=== PATIENT | female | born 1960 | race Caucasian/White ===

== ENCOUNTER 2023-10-27 09:39 | Outpatient (OUT) | payer MEDICARE, SELFPAY ==
--- NOTE | 2023-10-27 | XR_ITS ---
The [address] [address] Patient Name: KIZZY MENDES MRN: [id number] date: 1960 Sex: F Assigned Patient Location: RAD Current Patient Location: [facility] Accession/Order Number: [id number] Exam Date: 10/27/2023 10:00 Report Date: 10/27/2023 13:28 At the request of: TIM MARTINES Procedure: XR finger RT min 2V PROCEDURE: XR hand RT 2V, XR finger RT min 2V COMPARISON: None. HISTORY: Finger joint swelling FINDINGS: BONES:No acute fracture or dislocation. Joint space narrowing and marginal osteophyte formation first carpometacarpal and metacarpal phalangeal joint, second and third proximal and distal interphalangeal joints. Marginal osteophyte formation. SOFT TISSUES:Soft tissue swelling third proximal interphalangeal joint EFFUSION:None visible. OTHER: Negative. XR/XR finger RT min 2V IMPRESSION: Osteoarthritis Swelling over third proximal interphalangeal joint of unknown etiology. Consider inflammatory arthritis Electronically authenticated by: PRASHANT GARCIA Date: 10/27/2023 13:28
--- NOTE | 2023-10-27 | XR_ITS ---
The [address] [address] Patient Name: KIZZY MENDES MRN: [id number] date: 1960 Sex: F Assigned Patient Location: [facility] Current Patient Location: [facility] Accession/Order Number: [id number] Exam Date: 10/27/2023 10:00 Report Date: 10/27/2023 13:28 At the request of: TIM MARTINES Procedure: XR hand RT 2V PROCEDURE: XR hand RT 2V, XR finger RT min 2V COMPARISON: None. HISTORY: Finger joint swelling FINDINGS: BONES:No acute fracture or dislocation. Joint space narrowing and marginal osteophyte formation first carpometacarpal and metacarpal phalangeal joint, second and third proximal and distal interphalangeal joints. Marginal osteophyte formation. SOFT TISSUES:Soft tissue swelling third proximal interphalangeal joint EFFUSION:None visible. OTHER: Negative. XR/XR hand RT 2V IMPRESSION: Osteoarthritis Swelling over third proximal interphalangeal joint of unknown etiology. Consider inflammatory arthritis Electronically authenticated by: PRASHANT GARCIA Date: 10/27/2023 13:28
== END 2023-10-27 09:40 | disposition home or self-care (01) ==
LOC: RAD 09:44
PROVIDERS: PCP Nurse Practitioner; Visit Provider Nurse Practitioner
DX: M25.441 Effusion, right hand (principal)
CPT/HCPCS: 73120; 73140